=== PATIENT | female | born 1955 | race Caucasian/White ===

== ENCOUNTER → 2018-05-20 | Outpatient (CLI) | payer OTHER ==
[~2018-05-20] MED LIST: REGADENOSON 0.4 MG/5 ML SYRINGE ONE
== END | disposition home or self-care (01) ==
LOC: CVU 09:28
PROVIDERS: ATTEND Internal Medicine Cardiovascular Disease
DX: I10 Essential (primary) hypertension (principal); I47.1 Supraventricular tachycardia
CPT/HCPCS: 78452; 93017; 93306; A9502; J2785

== ENCOUNTER → 2018-05-31 | Outpatient (CLI) | payer OTHER ==
[~2018-05-31] MED LIST changes: +DILT180C72 PO; -REGADENOSON 0.4 MG/5 ML SYRINGE ONE
[2018-05-31 10:42] LABS: BASOPHILS # (AUTO) 0.03 x10^3/uL (0-0.1); BASOPHILS % (AUTO) 1 % (0-1); EOSINOPHILS # (AUTO) 0.14 x10^3/uL (0-0.4); EOSINOPHILS % (AUTO) 2 % (1-7); LYMPHOCYTES # (AUTO) 2.58 x10^3/uL (1-3.4); LYMPHOCYTES % (AUTO) 45 % (22-44); MD NO; MEAN CORPUSCULAR HEMOGLOBIN 29.6 pg (27.0-34.8); MEAN CORPUSCULAR VOLUME 87.1 fL (80-100); MEAN PLATELET VOLUME 9.1 fL (7.4-10.4); MONOCYTES # (AUTO) 0.51 x10^3/uL (0.2-0.8); MONOCYTES % (AUTO) 9 % (2-9); NEUTROPHILS # (AUTO) 2.44 x10^3/uL (1.8-6.8); NEUTROPHILS % (AUTO) 43 % (42-75); PLATELET COUNT 241 x10^3/uL (130-400); RED BLOOD COUNT 5.01 x10^6/uL (3.82-5.3); RED CELL DISTRIBUTION WIDTH 13.4 % (9.6-15.2)
[2018-05-31 10:43] LABS: MICROSCOPIC NOT IND
[2018-05-31 10:51] LABS: CULTURE INDICATED? NO
== END | disposition home or self-care (01) ==
LOC: STAR 09:33
PROVIDERS: ATTEND Orthopaedic Surgery
DX: Z01.818 Encounter for other preprocedural examination (principal); M25.562 Pain in left knee
CPT/HCPCS: 36415; 81003; 85025; 87081; 87147; 87806; 93005; G0475

== ENCOUNTER 2018-06-07 05:35 | Inpatient (IN) | payer OTHER ==
[~2018-06-07] VITALS: Ht 160 cm; Wt 100.9 kg
[2018-06-07] MEDS ORDERED: VANCOMYCIN PER PHARMACY MC STA (05:57)
[2018-06-07] MEDS ORDERED: LACTATED RINGERS 1,000 ML IV SCH (06:08)
[2018-06-07] MEDS ORDERED: KETOROLAC 60 MG/2 ML ONE ×2 (06:28→06:30)
[2018-06-07] MEDS ORDERED: BACITRACIN 50,000 UNIT ONE (06:29)
[2018-06-07] MEDS ORDERED: ROPIvacaine/PF 0.2%, 20 ML ONE (06:29)
[2018-06-07] MEDS ORDERED: morphine SULFATE/PF 1 MG/ML, 10ML ONE (06:29)
[2018-06-07] MEDS ORDERED: EPINEPHRINE 1 MG/ML, 1ML ONE (06:29)
[2018-06-07] MEDS ORDERED: TRANEXAMIC ACID 100 MG/ML, 10ML ONE (06:29)
[2018-06-07 06:30] VITALS: BP 133/84
[2018-06-07] MEDS ORDERED: VANCOMYCIN 1,300 MG in SODIUM CHLORIDE 0.9% 250 ML IV ONE (06:30)
[2018-06-07] MEDS ORDERED: PHARMACOKINETIC CONSULTATION MC ONE (06:30)
[2018-06-07] MEDS ORDERED: LIDOCAINE-MPF 1%, 2ML ONE (07:25)
[2018-06-07] MEDS: D5%-0.45% NACL 1,000 ML IV SCH ×3 (07:35→20:14)
[2018-06-07] MEDS ORDERED: MIDAZOLAM 1 MG/ML, 2ML ONE (07:48)
[2018-06-07] MEDS ORDERED: FENTANYL PF 100 MCG/2ML ONE ×3 (07:48→09:55)
[2018-06-07] MEDS ORDERED: METOCLOPRAMIDE 5 MG/ML, 2ML ONE (07:52)
[2018-06-07] MEDS ORDERED: DEXAMETHASONE 4 MG/ML, 1ML ONE (07:52)
[2018-06-07] MEDS ORDERED: LABETALOL 5MG/ML, 20ML ONE (07:52)
[2018-06-07] MEDS ORDERED: PROPOFOL 10 MG/ML, 20ML ONE (07:52)
[2018-06-07] MEDS ORDERED: LIDOCAINE-MPF 1%, 2ML INFIL ONE (08:00)
[2018-06-07] MEDS ORDERED: DIPHENHYDRAMINE 50 MG CAPSULE PO PRN (08:00)
[2018-06-07] MEDS ORDERED: ACETAMINOPHEN 325 MG TABLET PO PRN (08:00)
[2018-06-07] MEDS ORDERED: ZOLPIDEM 5MG TABLET PO PRN (08:00)
[2018-06-07] MEDS ORDERED: ONDANSETRON 2MG/ML, 2ML IVPush PRN ×2 (08:00→10:00)
[2018-06-07] MEDS ORDERED: LORazepam 2 MG/ML, 1ML IVPush PRN (08:00)
[2018-06-07] MEDS ORDERED: OXYcodone/APAP 7.5/325MG TABLET PO PRN (08:00)
[2018-06-07] MEDS ORDERED: morphine SULFATE 10 MG/ML, 1ML IVPush PRN (08:00)
[2018-06-07] MEDS ORDERED: ONDANSETRON 2MG/ML, 2ML ONE (08:15)
[2018-06-07] MEDS ORDERED: hydrALAzine 20 MG/ML, 1ML ONE (08:24)
[2018-06-07] MEDS ORDERED: BALANCED SALT OPHTH IRRIG SOLN 18ML ONE (09:33)
[2018-06-07] MEDS ORDERED: HYDROmorphone 2 MG/ML, 1ML ONE (09:54)
[2018-06-07] MEDS: FENTANYL PF 100 MCG/2ML IV PRN ×2 (09:57→10:25)
[2018-06-07] MEDS ORDERED: LABETALOL 5MG/ML, 20ML IV PRN (10:00)
[2018-06-07] MEDS ORDERED: DIPHENHYDRAMINE 50 MG/ML, 1ML IVPush PRN (10:00)
[2018-06-07] MEDS ORDERED: MEPERIDINE/PF 25MG/0.5ML IVPush PRN (10:00)
[2018-06-07] MEDS ORDERED: MIDAZOLAM 1 MG/ML, 2ML IV PRN (10:00)
[2018-06-07] MEDS ORDERED: DIPHENHYDRAMINE 50 MG/ML, 1ML ONE (10:05)
[2018-06-07] MEDS: HYDROmorphone 1 MG/ML, 1ML IV PRN ×3 (10:05→10:55)
[2018-06-07] MEDS ORDERED: ACETAMINOPHEN 650 MG/20.3 ML UDC ONE (10:22)
[2018-06-07] MEDS ORDERED: OXYcodone 5 MG/5 ML ORAL.SOL UDC ONE (10:23)
[2018-06-07] MEDS: OXYcodone 5 MG/5 ML ORAL.SOL UDC PO PRN ×2 (10:25→10:47)
[2018-06-07] MEDS ORDERED: TRANEXAMIC ACID 1,000 MG in SODIUM CHLORIDE 0.9% 100 ML IV ONE (10:30)
[2018-06-07 14:03] VITALS: BP 109/64
[2018-06-07] MEDS: CEFAZOLIN PMX 1GM/50ML 50 ML IVPB SCH (15:25)
[2018-06-07 20:00] VITALS: BP 128/80
[2018-06-07] MEDS: OXYcodone/APAP 7.5/325MG TABLET PO PRN (20:05)
[2018-06-07] MEDS: DIPHENHYDRAMINE 25 MG CAPSULE PO PRN (20:33)
[2018-06-07] MEDS ORDERED: SIMETHICONE 125 MG CHEW TAB PO PRN (21:30)
[2018-06-07 23:36] VITALS: BP 125/80
[2018-06-08] MEDS: CEFAZOLIN PMX 1GM/50ML 50 ML IVPB SCH ×2 (00:01→08:03)
[2018-06-08] MEDS: D5%-0.45% NACL 1,000 ML IV SCH ×4 (00:30→15:07)
[2018-06-08 03:04] VITALS: BP 137/84
[2018-06-08] MEDS: OXYcodone/APAP 7.5/325MG TABLET PO PRN ×4 (05:37→13:57)
[2018-06-08] MEDS: DIPHENHYDRAMINE 25 MG CAPSULE PO PRN ×2 (05:39→13:57)
[2018-06-08 07:30] VITALS: BP 125/84
[2018-06-08] MEDS ORDERED: ASPIRIN 325 MG TABLET EC PO SCH (08:00)
[2018-06-08] MEDS ORDERED: VANCOMYCIN PMX 1GM/200ML 200 ML IVPB ONE (08:00)
[2018-06-08] MEDS ORDERED: DOCUSATE 100 MG CAPSULE PO SCH (09:00)
[2018-06-08] MEDS ORDERED: DILTIAZEM CD 180 MG CAP.ER.24H PO SCH (09:00)
[2018-06-08 13:09] VITALS: BP 133/83
== END 2018-06-08 16:05 | disposition home or self-care (01) | DRG 470 ==
LOC: OUT 05:35 → ORIP 07:35 → 4NOR 11:27 → DCLOUNGE 06-08 15:48
PROVIDERS: ADMIT Orthopaedic Surgery; ATTEND Orthopaedic Surgery
PROC: 0SRD0J9 Replacement of Left Knee Joint with Synthetic Substitute, Cemented, Open Approach (ICD-10-PCS; principal; 2018-06-07 07:30)
DX: M17.12 Unilateral primary osteoarthritis, left knee (principal); I10 Essential (primary) hypertension; I25.2 Old myocardial infarction; Z88.8 Allergy status to other drugs, medicaments and biological substances
CPT/HCPCS: 36415; 85018; C1713; J0171; J0690; J1100; J1170; J1885; J2250; J2274; J2405; J2704; J2795; J3010; J3370; C1776; J0360; J1200; J2270; J2765; J7050; J7120; Q0163